=== PATIENT | female | born 1965 | race Caucasian/White ===

== ENCOUNTER → 2018-08-01 06:56 | Outpatient (CLI) | payer BC, SELFPAY ==
--- NOTE | 2018-08-01 07:04 | BI_ITS ---
MAMMOGRAPHY - BILATERAL SCREENING REASON FOR EXAM: Female, 53 years old. Routine annual screening examination. PERTINENT HISTORY: Grandmother with breast cancer. Remote right stereotactic breast biopsy. TECHNIQUE: Digital bilateral breast meg (3D mammographic acquisition) in the CC and MLO projections. 2-D mediolateral oblique (MLO) and craniocaudad (CC) views of both breasts were obtained. CAD: Full Field Digital Mammography with Computer Added Detection was performed. COMPARISON: Comparison is made with prior outside examination dated May 11, 2017. FINDINGS: Breast Composition: The breasts are heterogeneously dense, which may obscure small masses. Stable 1.7 cm x 1.6 cm well-defined nodule in the deep central lateral portion of the right breast. Punctate calcifications are seen within the period this may represent a fibroadenoma. Correlation with ultrasound is recommended. This also evidence of a 1.1 cm x 1 cm asymmetrical density in the deep slightly lateral portion of the left breast. Correlation with ultrasound is recommended. No other significant abnormalities are identified. BI/SCREENING MAMM (CAD), BILAT IMPRESSION: Nodular densities in both breasts as described. Correlation with ultrasound is recommended. ASSESSMENT CATEGORY: BIRADS Category 0: Incomplete. Need additional imaging evaluation. A letter regarding these results will be sent to the patient by the facility within 30 days. Approximately 10% of breast cancers are not detected by mammography. A normal mammogram should not delay biopsy of a clinically suspicious abnormality. [id number] Electronically Signed: Ed Curry MD at 8:54 EDT Tel [phone], Service support ,
== END ==
PROVIDERS: Family Provider Family Medicine; PCP Family Medicine; Visit Provider Nurse Practitioner Women's Health
DX: Z12.31 Encounter for screening mammogram for malignant neoplasm of breast (principal); N63.20 Unspecified lump in the left breast, unspecified quadrant; N63.10 Unspecified lump in the right breast, unspecified quadrant
CPT/HCPCS: 77063; 77067

== ENCOUNTER → 2018-08-04 09:44 | Outpatient (CLI) | payer BC, SELFPAY ==
--- NOTE | 2018-08-04 09:47 | US_ITS ---
STUDY: ULTRASOUND BREAST - RIGHT REASON FOR EXAM: Female, 53 years old. Abnormal screening mammogram. TECHNIQUE: Axial and longitudinal images of the RIGHT breast were performed with a high resolution ultrasound transducer. COMPARISON: Comparison is made with prior mammogram dated August 01, 2018. FINDINGS: RIGHT Breast: There is a 1 cm x 1.1 cm x 0.1 cm lobulated hypoechoic nodule at the 9:00 position breast at 2 cm from the nipple. A focal calcification is seen within it. This corresponds to the mammographic findings. A biopsy is recommended. IMPRESSION: 1 cm x 1.1 cm x 0.9 cm slightly lobulated hypoechoic nodule at the 9:00 position breast at 2 cm from the nipple. A punctate calcification is seen within the. A biopsy is recommended for further evaluation. ASSESSMENT CATEGORY: BIRADS Category 4: Suspicious - Biopsy Should Be Considered. A letter regarding these results will be sent to the patient by the facility within 30 days. Electronically Signed: Ed Curry MD at 15:49 EDT Tel [phone], Service support , STUDY: ULTRASOUND BREAST - LEFT REASON FOR EXAM: Female, 53 years old. Abnormal screening mammogram. TECHNIQUE: Axial and longitudinal images of the LEFT breast were performed with a high resolution ultrasound transducer. COMPARISON: Comparison is made with prior mammogram dated August 01, 2018. FINDINGS: LEFT Breast: The lateral half of the left breast was examined by ultrasound. There is dense fibroglandular tissue. No solid or cystic mass lesion is seen. US/Breast Complete Bilateral IMPRESSION: Unremarkable sonographic examination of the lateral half of the left breast. Routine annual mammographic follow-up is recommended. ASSESSMENT CATEGORY: BIRADS Category 1: Negative. A letter regarding these results will be sent to the patient by the facility within 30 days. Electronically Signed: Ed Curry MD at 15:49 EDT Tel [phone], Service support ,
== END ==
PROVIDERS: Family Provider Family Medicine; PCP Family Medicine; Visit Provider Nurse Practitioner Women's Health
DX: R92.8 Other abnormal and inconclusive findings on diagnostic imaging of breast (principal)
CPT/HCPCS: 76641

== ENCOUNTER → 2018-08-18 09:05 | Outpatient (CLI) | payer BC, SELFPAY ==
--- NOTE | 2018-08-18 | BRBX_PTH ---
PATIENT: JES MARCUM LOC: [facility] U#:[id number] AGE/SX: 60/F ROOM: RE08/18/[address]: Dr. Juan Mae MD : 1965 BED: DIS: SPEC #: [id number] RECD: 08/18/18 13:16 STATUS: LINDA NICOLASA #: [id number] DAMON: 08/18/18 00:[address]: Juan Mae DEPT: SURGICAL PATHOLOGY RECD BY: Boris Sun ENTERED: 08/18/18 13:16 SP TYPE: BREAST BX OTHR DR: Dr. Vladislav Batista MD Tissues: Right breast, NOS Procedures: Surgery Specimen Level IV HEADER OPERATION: Ultrasound-guided needle core biopsy right breast PRE-OP DIAGNOSIS: Abnormal mammogram right breast TISSUE SUBMITTED: Right breast biopsy MICROSCOPIC DIAGNOSIS Right breast, ultrasound-guided needle core biopsy: Hyalinized fibroadenoma. Negative for atypia or malignancy. SJ:ana 08/21/18 COMMENT Correlation with clinical, radiologic findings and appropriate follow up are necessary. MICROSCOPIC DESCRIPTION Slides are reviewed. GROSS DESCRIPTION Received in fixative is one container labeled with the patient's name and designated right breast biopsy. The specimen consists of multiple elongated fragments of pierson-yellow fibroadipose tissue that in aggregate measure 2 x 0.5 x 0.1 cm. The entire specimen is submitted in one cassette. / ERIC:ana 08/18/18 TC:1 CPT: 31263
== END ==
PROVIDERS: Family Provider Family Medicine; PCP Family Medicine; Referring Provider Surgery; Visit Provider Surgery
DX: R92.8 Other abnormal and inconclusive findings on diagnostic imaging of breast (principal)
CPT/HCPCS: 88305

== ENCOUNTER → 2019-08-02 07:16 | Outpatient (CLI) | payer BC, SELFPAY ==
--- NOTE | 2019-08-02 07:20 | BI_ITS ---
MAMMOGRAPHY - BILATERAL SCREENING REASON FOR EXAM: Female, 54 years old. Routine annual screening examination. PERTINENT HISTORY: Grandmother with breast cancer. Remote right stereotactic breast biopsy. TECHNIQUE: Digital bilateral breast lottie (3D mammographic acquisition) in the CC and MLO projections. 2-D mediolateral oblique (MLO) and craniocaudad (CC) views of both breasts were obtained. CAD: Full Field Digital Mammography with Computer Added Detection was performed. COMPARISON: Comparison is made with prior examination dated August 01, 2018. FINDINGS: Breast Composition: The breasts are heterogeneously dense, which may obscure small masses. There are no dominant masses or suspicious calcifications. Stable 1.4 cm x 1.4 cm nodule in the deep slightly upper lateral aspect of the right breast. A tissue clip marker is seen within it from prior biopsy. No new abnormality is seen. No other significant abnormalities are identified. There has been no significant change since the prior study. BI/SCREEN MAMM (CAD) W/LOTTIE BILAT IMPRESSION: Stable bilateral screening mammogram. Yearly follow-up mammogram recommended. (A) ASSESSMENT CATEGORY: BIRADS Category 2: Benign. A letter regarding these results will be sent to the patient by the facility within 30 days. Approximately 10% of breast cancers are not detected by mammography. A normal mammogram should not delay biopsy of a clinically suspicious abnormality. [id number] Electronically Signed: Ed Curry, at 10:33 EDT , Service support ,
== END ==
PROVIDERS: Family Provider Family Medicine; PCP Family Medicine; Referring Provider Nurse Practitioner Women's Health; Visit Provider Nurse Practitioner Women's Health
DX: Z12.31 Encounter for screening mammogram for malignant neoplasm of breast (principal); Z80.3 Family history of malignant neoplasm of breast
CPT/HCPCS: 77063; 77067

== ENCOUNTER → 2019-09-03 15:46 | Outpatient (CLI) | payer BC, SELFPAY ==
[2019-09-03 14:00] VITALS: BMI 25.7
[2019-09-07 16:14] LABS: HPV APTIMA, High Risk Negative (Negative)
== END ==
PROVIDERS: Family Provider Family Medicine; PCP Family Medicine; Referring Provider Nurse Practitioner Women's Health; Visit Provider Nurse Practitioner Women's Health
DX: Z12.4 Encounter for screening for malignant neoplasm of cervix (principal)
CPT/HCPCS: 87624; 88175; G0145

== ENCOUNTER → 2020-08-04 07:41 | Outpatient (CLI) | payer OTHER, SELFPAY ==
[2019-09-03 14:00] VITALS: BMI 25.7
--- NOTE | 2020-08-04 07:41 | BI_ITS ---
MAMMOGRAPHY - BILATERAL SCREENING REASON FOR EXAM: Female, 55 years old. Routine annual screening examination. PERTINENT HISTORY: Grandmother with breast cancer. Remote right Sterotactic and right ultrasound-guided breast biopsies. TECHNIQUE: Digital bilateral breast lottie (3D mammographic acquisition) in the CC and MLO projections. 2-D mediolateral oblique (MLO) and craniocaudad (CC) views of both breasts were obtained. CAD: Full Field Digital Mammography with Computer Added Detection was performed. COMPARISON: Comparison is made with prior examination dated 08/02/2019 and 08/01/2018. FINDINGS: Breast Composition: The breasts are heterogeneously dense, which may obscure small masses. There are no dominant masses or suspicious calcifications. Stable 1.2 cm x 1.4 cm nodular density in the deep slightly upper lateral aspect of the right breast. A tissue clip marker is seen within. No other significant abnormalities are identified. There has been no significant change since the prior study. BI/SCREEN MAMM (CAD) W/LOTTIE BILAT IMPRESSION: Stable bilateral screening mammogram. Yearly follow-up mammogram recommended. (A) ASSESSMENT CATEGORY: BIRADS Category 2: Benign. A letter regarding these results will be sent to the patient by the facility within 30 days. Approximately 10% of breast cancers are not detected by mammography. A normal mammogram should not delay biopsy of a clinically suspicious abnormality. [id number] Electronically Signed: Ed Curry, at 8:29 EDT , Service support ,
== END ==
PROVIDERS: PCP Family Medicine; Referring Provider Nurse Practitioner Women's Health; Visit Provider Nurse Practitioner Women's Health
DX: Z12.31 Encounter for screening mammogram for malignant neoplasm of breast (principal)
CPT/HCPCS: 77063; 77067

== ENCOUNTER → 2021-05-22 12:08 | Outpatient (CLI) | payer BC, SELFPAY ==
[2020-09-17 09:53] VITALS: BMI 25.1
[2021-05-22 12:50] LABS: D-Dimer Quantitative (DVT/PE) 0.37 FEU/ug/m (0.27-0.49)
== END ==
PROVIDERS: PCP Family Medicine; Referring Provider Family Medicine; Visit Provider Family Medicine
DX: R07.9 Chest pain, unspecified (principal)
CPT/HCPCS: 85379

== ENCOUNTER 2021-09-19 16:50 | Inpatient (IN) | payer BC, SELFPAY ==
[2021-09-19 16:51] VITALS: BP 128/77; PULSE 121; RESP 20; TEMP 36.1; O2SAT 95; BMI 24.9
--- NOTE | 2021-09-19 16:59 | RAD_ITS ---
STUDY: X-RAY CHEST REASON FOR EXAM: Female, 56 years old. shortness of breath, patient seen at urgent care last week given prednisone no xray felt better at the time now feeling worse TECHNIQUE: AP COMPARISON: None. FINDINGS: EKG leads project over the chest. Ill-defined infiltrate in left lower lobe. Trace left pleural thickening. Normal size heart. Normal mediastinum and nya. Normal visualized pulmonary arteries. Normal visualized aortic arch and descending thoracic aorta. Normal visualized thoracic spine. Normal visualized ribs, clavicles, and shoulders. There is no demonstrated abnormality of the visualized soft tissue structures of the upper abdomen. RAD/Chest 1 View (Portable) IMPRESSION: Left lower lobe infiltrate. Electronically Signed: Aly Mix MD (Brooks) at 17:38 EDT , Service support ,
--- NOTE | 2021-09-19 16:59 | EKG12_ITS ---
Test Reason : SOB/CHEST PRESSURE Blood Pressure : / mmHG Vent. Rate : 116 BPM Atrial Rate : 116 BPM P-R Int : 166 ms QRS Dur : 072 ms QT Int : 312 ms P-R-T Axes : 038 060 066 degrees QTc Int : 433 ms Sinus tachycardia Nonspecific ST and T wave abnormality Abnormal ECG Confirmed by BRENNA MUÑIZ, ESTER ([id number]), pictures editor KARTHIK BARNETT ([id number]) on 09/22/2021 9:30:20 AM Referred By: ROEL Confirmed By:ESTER CEJA MD
--- NOTE | 2021-09-19 17:00 | EDS_ITS ---
HPI History of Present Illness Chief Complaint: Shortness of Breath Informant: patient Onset/Context/Timing Onset: Weeks Context: Gradual Onset Timing: Waxes and wanes Current Severity: Mild Maximum Severity: Moderate Narrative Narrative: Patient presents secondary to continued shortness of breath. She reports shortness of breath for the past 2 weeks. She was seen at urgent care and was treated with a course of prednisone. That helped briefly but symptoms did recur. She does not feel like she is wheezing and has not required use of her albuterol rescue inhaler. She also reports having some mild chest pressure for the last 3 months. She states when it initially started she was worked up and cardiac evaluation was negative at that time. Patient has had 2 negative Covid tests in the last week. [facility] Medical History Abnormal Pap smear of cervix Asthma Home Medications albuterol sulfate 90 mcg/actuation aerosol inhaler 1 puff INHALATION Q6H 12/01/17 [History Last Taken Unknown] fluticasone 100 mcg-salmeterol 50 mcg/dose blistr powdr for inhalation 1 puff INHALATION BID 12/01/17 [History Last Taken Unknown] nicotine (polacrilex) 4 mg buccal lozenge 4 mg MUCOUS MEMBRANE ONCE 08/16/18 [History Last Taken Unknown] Allergy/AdvReac Type Severity Reaction Status Date / Time No Known Allergies Allergy Verified 09/19/21 16:55 Family History Grandmother Breast cancer Mother Thyroid disorder Hypertension Father Hypertension Surgical History colonoscopy History of right breast biopsy Social History Smoking Status: Never smoker alcohol intake: current details: occasionally substance use type: does not use caffeine: Yes what type of physical activity do you participate in: walking frequency: 3-4 times per week seatbelt use: always do you feel safe at home: Yes additional social history: patient works at the [employer] - Alberto works at [employer] ED Constitutional Constitutional ED: Reports fever(s); Denies chills Eyes Eyes: Denies change in vision ENT ENT ED: Denies sore throat Cardiovascular Cardiovascular: Reports chest pain Respiratory/Chest Respiratory/Chest: Reports cough and dyspnea; Denies sputum Gastrointestinal Gastrointestinal: Denies abdominal pain, diarrhea, nausea or vomiting Musculoskeletal Musculoskeletal: Denies back pain Integumentary Denies rash Neurologic Neurologic: Denies headache(s) or weakness Allergic/Immunologic Allergic/Immunologic ED: Denies urticaria EXAM Physical Exam Const Vital Signs: 09/19/21 16:51 09/19/21 17:19 Temperature 97.0 F L Temperature Source Temporal Pulse Rate 121 H Respiratory Rate 20 H Respiratory Effort Normal Non-Labored Respiratory Pattern Normal Blood Pressure 128/77 H Blood Pressure Mean 94 Pulse Ox 95 Oxygen Delivery Method Room Air Positive well nourished and well developed General Appearance ED: well developed Eyes PERRL and EOMs intact bilaterally Neck no lymphadenopathy and supple Chest Wall inspection of chest normal and palpation of chest normal Resp normal respiratory effort and clear to auscultation bilaterally Cardio regular rhythm Rate: tachycardic GI normal to inspection, nondistended, normoactive bowel sounds and non-tender Palpation: soft Extremity normal to inspection Neuro oriented x3 Sensorium / Orientation: alert Psych mental status grossly normal Skin no rashes or lesions noted MDM MDM MDM Narrative Medical decision making narrative: EKG, chest x-ray, lab work obtained. Lab Data Attestation: I reviewed the patient's lab results. Labs: Laboratory Results - last 24 hr 09/19/21 09/19/21 09/19/21 17:10 17:10 17:10 WBC 16.5 H RBC 3.89 L Hgb 10.5 L Hct 32.4 L MCV 83.3 MCH 27.0 MCHC 32.4 RDW Std Deviation 41.3 RDW Coeff of Sona 13.6 Plt Count 351 MPV 10.5 Immature Gran % (Auto) 0.500 Neut % (Auto) 71.4 H Lymph % (Auto) 15.9 L Dundy % (Auto) 11.6 H Eos % (Auto) 0.3 Baso % (Auto) 0.3 Absolute Neuts (auto) 11.8 H Absolute Lymphs (auto) 2.61 Nucleated RBC % 0 Differential Comment SCANNED Diff Path Review May foll D-Dimer Quant (PE/DVT) 5.03 H* Sodium 136 Potassium 3.6 Chloride 101 Carbon Dioxide 28.0 Anion Gap 7 BUN 8 Creatinine 0.68 Estim Creat Clear Calc 80.72 Est GFR (MDRD) Af Amer 116 Est GFR (MDRD) Non-Af 96 BUN/Creatinine Ratio 11.8 Glucose 111 H Calcium 8.7 Troponin I High Sens 4 Radiography Chest X-Ray - ED: 1 View, Read by ED Physician and Left Infiltrate Diagnostic Testing: Clinical Impression(s) from Imaging Studies Chest X-Ray 09/19/21 16:59 IMPRESSION: Left lower lobe infiltrate. Electronically Signed: Aly Mix MD (Brooks) at 17:38 EDT , Service support , Chest CTA 09/19/21 18:10 IMPRESSION: 1. No central or segmental pulmonary embolism. 2. Moderate volume pericardial effusion. 3. Small left and trace right pleural effusions. 4. Left lower lobe more than right lower lobe parenchymal consolidation, likely atelectasis although pneumonia cannot be excluded. Electronically Signed: Aly Mix MD (Brooks) at 18:46 EDT , Service support , EKG Initial EKG: Attestation: I personally reviewed and interpreted this EKG as follows: Interpretation: Sinus Tachycardia (Sinus tach at 116. No significant ST change.) Treatment and Re-Evaluation Comments:: Patient's lab work is reviewed. White count is elevated at 16. Chest x-ray consistent with left lower lobe infiltrate. D-dimer elevated at 5. CTA of the chest obtained which reveals atelectasis versus infiltrate in the left base. No evidence of PE. Moderate pericardial effusion noted. On repeat evaluation patient's blood pressure is stable. Oxygen saturation is normal on room air. She remains tachycardic between 110 and 120. I spoke with patient's primary care physician to see if we could arrange outpatient echocardiogram on Tuesday as patient is currently in the ER on Tuesday evening. He did not feel comfortable with this plan feeling the patient should be observed in the hospital until echocardiogram can be performed. I spoke with cardiology as well. With the patient having stable vital signs other than tachycardia he is comfortable with patient being admitted, treated for pneumonia, and obtaining echocardiogram on Tuesday. This is been discussed with patient and at bedside. They are in agreement with the plan. I will speak with the hospitalist. Discharge Plan Triage Chief Complaint: Shortness of Breath ED Provider: Mylene Mendes Dx/Rx/DC Orders Clinical Impression: Pneumonia, Pericardial effusion Prescriptions: No Action fluticasone propion-salmeterol [Advair Diskus] 100-50 mcg/dose blister with device 1 puff INHALATION BID RF: 0 albuterol sulfate [ProAir HFA] 90 mcg/actuation HFA aerosol inhaler 1 puff INHALATION Q6H RF: 0 nicotine (polacrilex) 4 mg lozenge 4 mg Mucous Membrane ONCE RF: 0 Primary Care Provider: Vladislav Batista Referrals: Vladislav Batista MD [Primary Care Provider] - Disposition Disposition: Acute Care [facility]
--- NOTE | 2021-09-19 17:03 | NURSING ---
NO OLD EKGS
[2021-09-19 17:45] LABS: Absolute Lymphocyte Count 2.61 X10^3/uL (0.83-4.51); Absolute Neutrophil Count 11.8 X10^3/uL (2.0-7.7); Basophil# 0.05 X10^3/uL; Basophil% 0.3 % (0-1); Eosinophil# 0.05 X10^3/uL; Eosinophils% 0.3 % (0-5); Hematocrit 32.4 % (37-47); Hemoglobin 10.5 g/dL (12.0-15.0); Lymphocyte # 2.61 X10^3/ul (0.83-4.51); Lymphocyte % 15.9 % (19-41); Mean Corp Hgb Conc 32.4 g/dL (32-36); Mean Corpuscular Volume 83.3 fL (81-99); Mean Platelet Vol. 10.5 fl (6.2-12.0); Monocyte% 11.6 % (0-10); NRBC Flagged by Analyzer 0 % (0-5); Neutrophil # 11.76 X10^3/uL (2.7-7.7); Neutrophil % 71.4 % (47-70); POSITIVE DIFFERENTIAL YES; Platelet Count 351 K/mm3 (150-450); RBC Distribution Width CV 13.6 % (11.6-14.6); RBC Distribution Width SD 41.3 fl (35.1-43.9); Red Blood Count 3.89 M/mm3 (4.2-5.4); White Blood Count 16.5 K/mm3 (4.4-11.0)
[2021-09-19 17:53] LABS: Differential Indicated SCAN CRITERIA MET
[2021-09-19 18:05] LABS: Anion Gap 7 (5-15); BUN 8 mg/dL (7-18); BUN/Creat Ratio 11.8 RATIO (10-20); Calcium,Total 8.7 mg/dL (8.5-10.1); Chloride 101 mmol/L (98-107); Creatinine, Serum 0.68 mg/dL (0.55-1.02); D-Dimer Quantitative (DVT/PE) 5.03 FEU/ug/m (0.27-0.49); EST Glomerular Filtration Rate 96 mL/min (>60); Est Glom Filt Rate - Afr Amer 116 mL/min (>60); Estimated Creatinine Clearance 80.72 ml/min; Glucose 111 mg/dL (74-106); Potassium 3.6 mmol/L (3.5-5.1); Sodium Level 136 mmol/L (136-145); Troponin-I HS 4 pg/mL (3.0-54.0)
[2021-09-19 18:09] LABS: Differential Comment SCANNED
--- NOTE | 2021-09-19 18:10 | CT_ITS ---
STUDY: CTA CHEST REASON FOR EXAM: Female, 56 years old. sob RADIATION DOSAGE (If Supplied By Facility): CTDIvol = ( 6.68 ) mGy, DLP = ( 183.66 ) mGycm TECHNIQUE: The examination was performed with the intravenous administration of IV 75mL Isovue-370. Post-processing of the angiographic images was performed, with multiplanar reformation and 3D reconstruction. Individualized dose optimization techniques were used for this CT. COMPARISON: None. FINDINGS: Normal enhancement of the main pulmonary artery and right and left pulmonary arteries. Normal enhancement of the bilateral peripheral pulmonary arteries. There is no demonstrated pulmonary embolism. Normal thoracic aorta and visualized great vessels. There is no demonstrated aortic dissection. The heart size is normal. Moderate volume pericardial effusion. Normal mediastinum. Normal hilar regions. Normal visualized trachea and bronchi. The lungs are under expanded. Parenchymal consolidation in the left more than right lung base. Small left and trace right pleural effusions. No pneumothorax. Normal chest wall structures. There are degenerative changes of thoracic spine. Normal visualized upper abdomen. CT/CTA Chest W/WO Contrast IMPRESSION: 1. No central or segmental pulmonary embolism. 2. Moderate volume pericardial effusion. 3. Small left and trace right pleural effusions. 4. Left lower lobe more than right lower lobe parenchymal consolidation, likely atelectasis although pneumonia cannot be excluded. Electronically Signed: Aly Mix MD (Brooks) at 18:46 EDT , Service support ,
[2021-09-19] MEDS: levoFLOXacin 750 MG Tablet PO (20:07)
--- NOTE | 2021-09-19 20:48 | PCM.HP.STD ---
[facility] - General General Date of Admission: 09/19/21 Date of Service: 09/19/21 Chief Complaint: SOB HPI Narrative JES MARCUM, is a 56 F with a significant history of asthma who presents to the emergency department with recurrent shortness of breath. About 6-day before presentation patient was started on prednisone for shortness of breath. She finished taking the prednisone 2 days ago and a day after presentation her symptoms of shortness of breath restarted. Her shortness of breath is mild at rest and it increases markedly with exertion. Also she reports dry cough. At the emergent department because patient was found to have pleural effusion on CT, ED doctor discussed the case with cardiology who recommended that patient stay at the hospital. [facility] Medical History Abnormal Pap smear of cervix Asthma Home Medications albuterol sulfate 90 mcg/actuation aerosol inhaler 1 puff INHALATION Q6H 12/01/17 [History Last Taken Unknown] fluticasone propion-salmeterol [Wixela Inhub] 1 ea INHALATION BID 09/19/21 [History Last Taken Unknown] montelukast 10 mg PO PRN PRN 09/19/21 [History Last Taken Unknown] Allergy/AdvReac Type Severity Reaction Status Date / Time No Known Allergies Allergy Verified 09/19/21 21:46 Family History Grandmother Breast cancer Mother Thyroid disorder Hypertension Father Hypertension Surgical History colonoscopy History of right breast biopsy Social History Smoking Status: Current every day smoker tobacco type: cigarettes alcohol intake: current details: occasionally substance use type: does not use caffeine: Yes what type of physical activity do you participate in: walking frequency: 3-4 times per week seatbelt use: always do you feel safe at home: Yes 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 Denies , fatigue, anorexia and change in weight Eyes: Denies blurry vision, change in eye color, change in vision, discharge from eye(s), double vision, erythema, eye pain, loss of vision or other HEENT: Denies abnormal hearing, dysphagia, ear pain, epistaxis, headache(s), hearing loss, nasal congestion, nasal discharge, post nasal drip, sinus pressure, sore throat or other Cardiovascular: Reports chest pressure. Denies palpitations. Respiratory/Chest: Reports shortness of breath and dry cough. Gastrointestinal: Denies abdominal pain, coffee ground emesis, constipation, diarrhea, dyspepsia, hematemesis, hematochezia, loose stools, melena, nausea, vomiting or other Genitourinary: Denies burning urination, difficulty urinating, dysuria, hematuria, nocturia, urinary frequency, urinary hesitancy, urinary incontinence, urinary urgency or other Musculoskeletal: Denies arthralgias, back pain, joint pain, joint stiffness, joint swelling, myalgias, neck pain or other Neurologic: Denies abnormal gait, abnormal speech, confusion, disequilibrium, dizziness, focal weakness, headache(s), numbness, paresthesias, seizure-like activity, seizures, syncope, tingling, tremor(s) or other Psychiatric: Denies anxiety, depression, homicidal ideation, suicidal ideation or other Endocrinology: Denies change in body appearance, cold intolerance, excessive sweating, heat intolerance, polydipsia, polyuria or other Hematologic/Lymphatic: Denies anemia, easy bleeding, easy bruising, lymphadenopathy or other Integumentary: Denies rashes Allergic/Immunologic: Denies rhinitis, hives, eczema, asthma or other Vital Signs Vital Signs Vital Signs: 09/19/21 16:51 09/19/21 17:19 Temperature 97.0 F L Temperature Source Temporal Pulse Rate 121 H Respiratory Rate 20 H Respiratory Effort Normal Non-Labored Respiratory Pattern Normal Blood Pressure 128/77 H Blood Pressure Mean 94 Pulse Ox 95 Oxygen Delivery Method Room Air Weight Weight: 65.771 kg Body Mass Index (BMI) 24.9 Physical Exam Narrative Physical exam: General: Well-nourished, well-developed. Head: Normocephalic, atraumatic, no tenderness Eyes: PERRLA, EOMI ENT, no trauma, moist mucous membranes, no rhinorrhea Neck: Nontender, full range of motion, no spinal tenderness, deformities, step-off CVS: Regular rate and rhythm. S1-S2 present. No murmur, gallop or rub. Respiratory : clear to auscultation bilaterally, chest wall nontender, no wheezing Abdomen: Soft, nontender, nondistended, normal bowel sounds, no masses : Deferred Back: Nontender, no CVA tenderness, no midline spinal tenderness, deformities, step-offs Extremities: Nontender full range of motion, no trauma Skin: Normal color, no trauma, abrasions Neuro: Alert, oriented, cranial nerves II through XII grossly intact. Psychiatry: Not depressed. Anxious. Results Lab / Micro Data Result Diagrams: 09/19/21 17:10 09/19/21 17:10 Labs: Laboratory Results - last 24 hr 09/19/21 17:10: WBC 16.5 H, RBC 3.89 L, Hgb 10.5 L, Hct 32.4 L, MCV 83.3, MCH 27.0, MCHC 32.4, RDW Std Deviation 41.3, RDW Coeff of Sona 13.6, Plt Count 351, MPV 10.5, Immature Gran % (Auto) 0.500, Neut % (Auto) 71.4 H, Lymph % (Auto) 15.9 L, Bullock % (Auto) 11.6 H, Eos % (Auto) 0.3, Baso % (Auto) 0.3, Absolute Neuts (auto) 11.8 H, Absolute Lymphs (auto) 2.61, Nucleated RBC % 0, Differential Comment SCANNED, Diff Path Review March foll 09/19/21 17:10: D-Dimer Quant (PE/DVT) 5.03 H* 09/19/21 17:10: Sodium 136, Potassium 3.6, Chloride 101, Carbon Dioxide 28.0, Anion Gap 7, BUN 8, Creatinine 0.68, Estim Creat Clear Calc 80.72, Est GFR (MDRD) Af Amer 116, Est GFR (MDRD) Non-Af 96, BUN/Creatinine Ratio 11.8, Glucose 111 H, Calcium 8.7, Troponin I High Sens 4 Radiology Impression Chest X-Ray 09/19/21 16:59 IMPRESSION: Left lower lobe infiltrate. Electronically Signed: Aly Mix MD (Brooks) at 17:38 EDT , Service support , Chest CTA 09/19/21 18:10 IMPRESSION: 1. No central or segmental pulmonary embolism. 2. Moderate volume pericardial effusion. 3. Small left and trace right pleural effusions. 4. Left lower lobe more than right lower lobe parenchymal consolidation, likely atelectasis although pneumonia cannot be excluded. Electronically Signed: Aly Mix MD (Brooks) at 18:46 EDT , Service support , Assessment & Plan Assessment/Plan (1) Pneumonia: QUALIFIERS: Laterality: bilateral Lung location: lower lobe of lung Pneumonia type: due to unspecified organism Qualified Code(s): J18.9 - Pneumonia, unspecified organism (2) Pericardial effusion: PLAN: Pneumonia Gram-positive, or gram-negative Chest CTA and chest x-ray was independently interpreted and I agree with radiologist impression above. Reported patient had 2 negative Covid test in the last week. Patient leukocytosis 16.5 which could secondary to pneumonia of her recent prednisone use. Levaquin 750 mg IV daily ordered. Incentive spirometer and chest physiotherapy ordered. Strep pneumonia antigen and Legionella urine antigen ordered On ICS?LABA at home. Albuterol inhalation [id number] and Budesonide ordered inpatient. Pericardial effusion ESR and CRP ordered. Echocardiogram ordered per cardiology recommendation. Cardiology consult Asthma Stable without any wheezes or diminished breath sounds at this time. Montelukast continued. Breathing treatment as above. DVT prophylaxis: Subcutaneous Lovenox ordered. Charges/Coding Visit Charges Inpatient E&M: 34186 Init Hosp L3
[2021-09-19 21:01] VITALS: BP 104/66; PULSE 113; PULSE 114; RESP 24; RESP 25; TEMP 36.4; O2SAT 95
[2021-09-19 21:39] VITALS: BMI 24.9
[2021-09-19 21:44] VITALS: BP 121/65; PULSE 115; RESP 20; TEMP 37.6; O2SAT 97
[2021-09-19] MEDS: Acetaminophen 325 MG Tablet 650 MG PO (22:07)
[2021-09-19 22:19] LABS: Erythrocyte Sedimentation Rate 76 mm/hr (0-30)
[2021-09-19 22:20] VITALS: PULSE 106
--- NOTE | 2021-09-19 22:23 | PCS.PANDOC ---
PANDEMIC DOCUMENTATION INITIATED: Date: 07/06/2021 Time: 190
[2021-09-19 23:59] VITALS: O2SAT 95
[2021-09-20] VITALS (12 sets, daily range): BP systolic 94–111; BP diastolic 63–68; PULSE 90–101; RESP 16–20; TEMP 36.5–37.2; O2SAT 91–100
[2021-09-20] MEDS: Albuterol 2.5 MG/3 ML VIAL.NEB. INHALATION (05:41)
[2021-09-20] MEDS: Budesonide Respules 0.5 MG/2 ML AMPUL.NEB. INHALATION (05:41)
[2021-09-20 05:58] LABS: Absolute Lymphocyte Count 1.64 X10^3/uL (0.83-4.51); Absolute Neutrophil Count 6.4 X10^3/uL (2.0-7.7); Basophil# 0.05 X10^3/uL; Basophil% 0.5 % (0-1); Eosinophil# 0.11 X10^3/uL; Eosinophils% 1.1 % (0-5); Hematocrit 32.1 % (37-47); Hemoglobin 10.2 g/dL (12.0-15.0); Lymphocyte # 1.64 X10^3/ul (0.83-4.51); Mean Corp Hgb Conc 31.8 g/dL (32-36); Mean Corpuscular Hgb 26.8 pg (27.0-32.0); Mean Corpuscular Volume 84.3 fL (81-99); Mean Platelet Vol. 10.5 fl (6.2-12.0); Monocyte# 1.35 X10^3/uL; NRBC Flagged by Analyzer 0 % (0-5); Neutrophil # 6.43 X10^3/uL (2.7-7.7); Neutrophil % 66.8 % (47-70); Platelet Count 344 K/mm3 (150-450); RBC Distribution Width CV 13.8 % (11.6-14.6); RBC Distribution Width SD 42.9 fl (35.1-43.9); Red Blood Count 3.81 M/mm3 (4.2-5.4); White Blood Count 9.6 K/mm3 (4.4-11.0)
[2021-09-20 06:20] LABS: Anion Gap 6 (5-15); BUN 10 mg/dL (7-18); Calcium,Total 8.5 mg/dL (8.5-10.1); Chloride 102 mmol/L (98-107); Creatinine, Serum 0.67 mg/dL (0.55-1.02); EST Glomerular Filtration Rate 98 mL/min (>60); Est Glom Filt Rate - Afr Amer 118 mL/min (>60); Estimated Creatinine Clearance 81.93 ml/min; Glucose 103 mg/dL (74-106); Sodium Level 137 mmol/L (136-145)
[2021-09-20] MEDS: Montelukast 10 MG Tablet PO (09:04)
--- NOTE | 2021-09-20 11:34 | ECHOD_ITS ---
Reason For Study: arrhythmia Procedure This was a 2D Doppler, Color Flow transthoracic echocardiogram. Contrast injection was performed. Exam performed portable in patient room. Left Ventricle Normal LV size. Left ventricular systolic function is normal. The estimated ejection fraction is 65 %. No evidence for diastolic dysfunction. No regional wall motion abnormalities noted. Right Ventricle Normal RV size. Normal systolic function. Atria Normal left atrium. Normal right atrium. No doppler evidence for ASD. Mitral Valve There is no mitral annular calcification. Normal mitral valve. Trivial mitral valve insufficiency. Tricuspid Valve Normal tricuspid valve. Mild tricuspid valve insufficiency. Right ventricular systolic pressure estimated to be 22 mmHg. Aortic Valve Trisinus/trileaflet aortic valve. Normal aortic valve. Pulmonic Valve The pulmonic valve is not well visualized. Trivial pulmonic valve insufficiency. Great Vessels Normal sized aortic root. Pericardium/Pleural Trivial to small pericardial effusion. There are no echocardiographic indications of cardiac tamponade. MMode/2D Measurements & Calculations LVIDd: 4.5 cm IVSd: 1.1 cm Ao root diam: 3.3 cm LVIDs: 3.1 cm LVPWd: 1.1 cm RVDd: 2.8 cm FS: 31.1 % LAV(MOD-bp): 59.5 ml LA A4 area: 18.5 cm2 LA dimension(2D): 3.9 cm LAV(MOD-bp) Indexed: 34.9 ml/m2 LAV(MOD-sp2): 58.6 ml LAV(MOD-sp4): 58.6 ml RA A4 area: 14.8 cm2 Time Measurements MV dec time: 0.18 sec Doppler Measurements & Calculations MV E max shreyas: 76.8 cm/sec Lat Peak E' Shreyas: 10.3 cm/sec Med Peak E' Shreyas: 10.6 cm/sec MV A max shreyas: 68.1 cm/sec E/E' lat: 7.4 E/E' med: 7.3 MV E/A: 1.1 Ao V2 max: 111.0 cm/sec LV V1 max: 91.3 cm/sec PA V2 max: 87.6 cm/sec Ao max P.9 mmHg LV V1 max P.3 mmHg TR max shreyas: 209.7 cm/sec TR max P.0 mmHg ECHO/Echo Complete Interpretation Summary Left ventricular systolic function is normal. The estimated ejection fraction is 65 %. Trivial mitral valve insufficiency. Mild tricuspid valve insufficiency. Trivial pulmonic valve insufficiency. Trivial to small pericardial effusion. There are no echocardiographic indications of cardiac tamponade. Right ventricular systolic pressure estimated to be 22 mmHg. No evidence for diastolic dysfunction. Ordering Physician: Bruce Millard Referring Physician: Vladislav Batista Performed By: Sonya Obrien RDCS, RVT
--- NOTE | 2021-09-20 12:07 | PCM.PN.HOSP ---
Documented by User: Seb MARTE 09/20/21 12:18 Subjective Subjective Patient was a 56-year-old female comfortably resting in bed, alert and orient x3. Patient reports that her shortness of breath is more or less the same from admission, although she does not appear to be in acute distress. Denies development of any new symptoms overnight. Objective Data Objective Data Vital Signs: Vital Signs Temp Pulse Resp BP Pulse Ox 98 F 90 20 H 107/63 97 09/20/21 09:50 09/20/21 10:00 09/20/21 10:00 09/20/21 09:50 09/20/21 10:00 Oxygen Delivery Method Room Air Weight: 145 lb 4.554 oz Body Mass Index (BMI) 24.9 Lab / Micro Data Result Diagrams: 09/20/21 05:18 09/20/21 05:18 Labs: Laboratory Results - last 24 hr 09/19/21 17:10: WBC 16.5 H, RBC 3.89 L, Hgb 10.5 L, Hct 32.4 L, MCV 83.3, MCH 27.0, MCHC 32.4, RDW Std Deviation 41.3, RDW Coeff of Sona 13.6, Plt Count 351, MPV 10.5, Immature Gran % (Auto) 0.500, Neut % (Auto) 71.4 H, Lymph % (Auto) 15.9 L, [place] % (Auto) 11.6 H, Eos % (Auto) 0.3, Baso % (Auto) 0.3, Absolute Neuts (auto) 11.8 H, Absolute Lymphs (auto) 2.61, Nucleated RBC % 0, Differential Comment SCANNED, Diff Path Review March09/19/21 17:10: D-Dimer Quant (PE/DVT) 5.03 H* 09/19/21 17:10: Sodium 136, Potassium 3.6, Chloride 101, Carbon Dioxide 28.0, Anion Gap 7, BUN 8, Creatinine 0.68, Estim Creat Clear Calc 80.72, Est GFR (MDRD) Af Amer 116, Est GFR (MDRD) Non-Af 96, BUN/Creatinine Ratio 11.8, Glucose 111 H, Calcium 8.7, Troponin I High Sens 4 09/19/21 17:10: C-React Prot Ext Range 104.00 H 09/19/21 17:10: ESR 76 H 09/20/21 05:18: WBC 9.6, RBC 3.81 L, Hgb 10.2 L, Hct 32.1 L, MCV 84.3, MCH 26.8 L, MCHC 31.8 L, RDW Std Deviation 42.9, RDW Coeff of Sona 13.8, Plt Count 344, MPV 10.5, Immature Gran % (Auto) 0.600, Neut % (Auto) 66.8, Lymph % (Auto) 17.0 L, [place]oughton % (Auto) 14.0 H, Eos % (Auto) 1.1, Baso % (Auto) 0.5, Absolute Neuts (auto) 6.4, Absolute Lymphs (auto) 1.64, Nucleated RBC % 0 09/20/21 05:18: Sodium 137, Potassium 4.0, Chloride 102, Carbon Dioxide 29.0, Anion Gap 6, BUN 10, Creatinine 0.67, Estim Creat Clear Calc 81.93, Est GFR (MDRD) Af Amer 118, Est GFR (MDRD) Non-Af 98, BUN/Creatinine Ratio 15.0, Glucose 103, Calcium 8.5 Micro: Microbiology 09/19/21 21:58 Urine, Clean Catch Legionella Antigen - Final 09/19/21 21:58 Urine, Clean Catch Streptococcus pneumoniae Antigen (M - Final Radiography Diagnostic Testing: Radiology Impression Chest X-Ray 09/19/21 16:59 IMPRESSION: Left lower lobe infiltrate. Electronically Signed: Aly Mix MD (Brooks) at 17:38 EDT , Service support , Chest CTA 09/19/21 18:10 IMPRESSION: 1. No central or segmental pulmonary embolism. 2. Moderate volume pericardial effusion. 3. Small left and trace right pleural effusions. 4. Left lower lobe more than right lower lobe parenchymal consolidation, likely atelectasis although pneumonia cannot be excluded. Electronically Signed: Aly Mix MD (Brooks) at 18:46 EDT , Service support , Physical Exam Const alert, oriented x3 and no apparent distress HEENT head/scalp atraumatic, moist oral mucous membranes and oropharynx normal Head and Scalp: normocephalic Eyes PERRL, EOMs intact bilaterally and conjunctivae normal Neck no lymphadenopathy, supple and no JVD Resp normal respiratory effort, no retractions and no use of accessory muscles Auscultation: diminished lung sounds bilateral lower Cardio regular rate, regular rhythm, no murmurs and no JVD GI normal to inspection, nondistended, normoactive bowel sounds, soft to palpation and non-tender Extremity normal to inspection, full ROM and no clubbing, cyanosis or edema Peripheral Pulses: Yes pulses 2+ throughout Skin no rashes or lesions noted, no wounds, skin turgor normal and no jaundice Neuro CN's II-XII intact bilaterally Psych affect normal Assessment & Plan Assessment/Plan (1) Pneumonia: QUALIFIERS: Laterality: bilateral Lung location: lower lobe of lung Pneumonia type: due to unspecified organism Qualified Code(s): J18.9 - Pneumonia, unspecified organism (2) Pericardial effusion: PLAN: Day 1 Discharge planning: Current plan is for patient to discharge home. 1) community-acquired pneumonia Patient reports that her shortness of breath is the same from admission, although patient does not appear to be in acute distress. Vital signs are stable and patient is currently satting 97% on room air. White count has resolved, WBC is currently 9.6. CTA and chest x-ray both identified left lower lobe infiltrate. Legionella and strep pneumo urinary antigens negative. Patient had 2 - Covid test prior to admission in the last week. Plan; continue levofloxacin, continue breathing treatments. 2) pericardial effusion Seen on chest CTA. Recommendation is for echocardiogram on 09/21, per cardiology. Cardiology following. 3) asthma Patient has diminished lung sounds bilaterally at the lower lung bases, although patient appears stable, montelukast and breathing treatments continued. DVT prophylaxis - Lovenox Patient seen by Seb Medina PA-C, under the supervision of Dr. Velasco. Documented by User: Dr. Joanne Velasco MD 09/20/21 13:48 Objective Data Lab / Micro Data Result Diagrams: 09/20/21 05:18 09/20/21 05:18 Charges/Coding Addendum Addendum: This patient was seen in conjunction with ROSANNA Flaherty. I have independently interviewed and examined the patient and reviewed pertinent historical, laboratory, and other data. Please refer to ROSANNA Flaherty's note for his patient's presentation, findings, and recommendations. I have reviewed and his note and concur with his documentation Patient was seen and examined. Her was at the bedside. She denied any chest discomfort. She has had on and no fevers or joint aches. She has occasional cough but is mostly dry. Chest x-ray had showed a left lower lobe infiltrate. CTA did show bilateral pleural effusion, more in the left. Physical Exam: Gen: Comfortable, not pale, not jaundiced CVS:HS I +II, regular, no murmurs RESP: CTA GI: BS present and normal, soft, nontender, no palpable organs EXT:No edema ASSESSMENT: 1. Acute moderate pleural effusion 2. Probable left lower lobe pneumonia 3. Asthma, not in acute exacerbation Plan: Continue IV antibiotics for now Appreciate cardiology consult Follow-up with 2D echo in a.m. Visit Charges Inpatient E&M: 23413 Subs Hosp L2
--- NOTE | 2021-09-20 12:25 | CON.PCM.CA_ITS ---
Assessment & Plan Assessment/Plan (1) Pneumonia: QUALIFIERS: Pneumonia type: due to unspecified organism Laterality: bilateral Lung location: lower lobe of lung Qualified Code(s): J18.9 - Pneumonia, unspecified organism (2) Asthma: (3) Pericardial effusion: PLAN: 56-year-old female with history of bronchial asthma, smoker who presented with symptoms shortness of breath Has leukocytosis with abnormal CT chest showing evidence of bilateral left and right lower lobe consolidation more prominent in the left lower lobe In addition to moderate pericardial effusion Patient has no prior cardiac history Cardiovascular examination essentially normal cardiac telemetry showed normal sinus rhythm she been improving on the current IV antibiotic treatment for pneumonia with Levaquin Cardiac care plan and recommendations; 1. We will evaluate the moderate pericardial effusion by echocardiogram. 2. We will follow-up clinically by the cardiac team. HPI Consult Data Date of Consult: 09/20/21 HPI Narrative Reason for Consultation: Pericardial effusion evaluation HPI Narrative: JES MARCUM, is a 56 F who presents [facility] Medical History Abnormal Pap smear of cervix Asthma Home Medications albuterol sulfate 90 mcg/actuation aerosol inhaler 1 puff INHALATION Q6H 12/01/17 [History Last Taken Unknown] fluticasone propion-salmeterol [Wixela Inhub] 1 ea INHALATION BID 09/19/21 [History Last Taken Unknown] montelukast 10 mg PO PRN PRN 09/19/21 [History Last Taken Unknown] Allergy/AdvReac Type Severity Reaction Status Date / Time No Known Allergies Allergy Verified 09/19/21 21:46 Family History Grandmother Breast cancer Mother Thyroid disorder Hypertension Father Hypertension Surgical History colonoscopy History of right breast biopsy Social History Smoking Status: Current every day smoker tobacco type: cigarettes alcohol intake: current details: occasionally substance use type: does not use caffeine: Yes what type of physical activity do you participate in: walking frequency: 3-4 times per week seatbelt use: always do you feel safe at home: Yes 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 Has symptoms of shortness of breath but improving No symptoms of chest pain reported Patient alert oriented x3. Cardiovascular lamination; S1-S2 normal, no murmur no systolic or diastolic murmur Chest examination mild expiratory wheeze and bilateral rales more prominent in the left lower lobe. Abdomen soft. Examination lower extremity no clubbing no cyanosis no lower extremity edema. Examination of central nervous system no focal logical deficit. Risk Stratification Risk Stratification Applicable: No Objective Data Vital Signs: Vital Signs Temp Pulse Resp BP Pulse Ox 98 F 90 20 H 107/63 97 09/20/21 09:50 09/20/21 10:00 09/20/21 10:00 09/20/21 09:50 09/20/21 10:00 Oxygen Delivery Method Room Air Weight: 145 lb 4.554 oz Body Mass Index (BMI) 24.9 Lab / Micro Data Result Diagrams: 09/20/21 05:18 09/20/21 05:18 Labs: Laboratory Results - last 24 hr 09/19/21 17:10: WBC 16.5 H, RBC 3.89 L, Hgb 10.5 L, Hct 32.4 L, MCV 83.3, MCH 27.0, MCHC 32.4, RDW Std Deviation 41.3, RDW Coeff of Sona 13.6, Plt Count 351, MPV 10.5, Immature Gran % (Auto) 0.500, Neut % (Auto) 71.4 H, Lymph % (Auto) 15.9 L, Garfield % (Auto) 11.6 H, Eos % (Auto) 0.3, Baso % (Auto) 0.3, Absolute Neuts (auto) 11.8 H, Absolute Lymphs (auto) 2.61, Nucleated RBC % 0, Differential Comment SCANNED, Diff Path Review March09/19/21 17:10: D-Dimer Quant (PE/DVT) 5.03 H* 09/19/21 17:10: Sodium 136, Potassium 3.6, Chloride 101, Carbon Dioxide 28.0, Anion Gap 7, BUN 8, Creatinine 0.68, Estim Creat Clear Calc 80.72, Est GFR ( MDRD) Af Amer 116, Est GFR (MDRD) Non-Af 96, BUN/Creatinine Ratio 11.8, Glucose 111 H, Calcium 8.7, Troponin I High Sens 4 09/19/21 17:10: C-React Prot Ext Range 104.00 H 09/19/21 17:10: ESR 76 H 09/20/21 05:18: WBC 9.6, RBC 3.81 L, Hgb 10.2 L, Hct 32.1 L, MCV 84.3, MCH 26.8 L, MCHC 31.8 L, RDW Std Deviation 42.9, RDW Coeff of Sona 13.8, Plt Count 344, MPV 10.5, Immature Gran % (Auto) 0.600, Neut % (Auto) 66.8, Lymph % (Auto) 17.0 L, Garfield % (Auto) 14.0 H, Eos % (Auto) 1.1, Baso % (Auto) 0.5, Absolute Neuts (auto) 6.4, Absolute Lymphs (auto) 1.64, Nucleated RBC % 0 09/20/21 05:18: Sodium 137, Potassium 4.0, Chloride 102, Carbon Dioxide 29.0, Anion Gap 6, BUN 10, Creatinine 0.67, Estim Creat Clear Calc 81.93, Est GFR (MDRD) Af Amer 118, Est GFR (MDRD) Non-Af 98, BUN/Creatinine Ratio 15.0, Glucose 103, Calcium 8.5 Micro: Microbiology 09/19/21 21:58 Urine, Clean Catch Legionella Antigen - Final 09/19/21 21:58 Urine, Clean Catch Streptococcus pneumoniae Antigen (M - Final Cardiology Labs/Tests 09/19/21 17:10: WBC 16.5 H, RBC 3.89 L, Hgb 10.5 L, Hct 32.4 L, MCV 83.3, MCH 27.0, MCHC 32.4, Plt Count 351, MPV 10.5, Immature Gran % (Auto) 0.500, Neut % (Auto) 71.4 H, Lymph % (Auto) 15.9 L, Garfield % (Auto) 11.6 H, Eos % (Auto) 0.3, Baso % (Auto) 0.3, Absolute Neuts (auto) 11.8 H, Nucleated RBC % 0 09/19/21 17:10: D-Dimer Quant (PE/DVT) 5.03 H* 09/19/21 17:10: Sodium 136, Potassium 3.6, Chloride 101, Carbon Dioxide 28.0, Anion Gap 7, BUN 8, Creatinine 0.68, Est GFR (MDRD) Af Amer 116, Est GFR (MDRD) Non-Af 96, BUN/Creatinine Ratio 11.8, Glucose 111 H, Calcium 8.7 09/20/21 05:18: WBC 9.6, RBC 3.81 L, Hgb 10.2 L, Hct 32.1 L, MCV 84.3, MCH 26.8 L, MCHC 31.8 L, Plt Count 344, MPV 10.5, Immature Gran % (Auto) 0.600, Neut % (Auto) 66.8, Lymph % (Auto) 17.0 L, Garfield % (Auto) 14.0 H, Eos % (Auto) 1.1, Baso % (Auto) 0.5, Absolute Neuts (auto) 6.4, Nucleated RBC % 0 09/20/21 05:18: Sodium 137, Potassium 4.0, Chloride 102, Carbon Dioxide 29.0, Anion Gap 6, BUN 10, Creatinine 0.67, Est GFR (MDRD) Af Amer 118, Est GFR (MDRD) Non-Af 98, BUN/Creatinine Ratio 15.0, Glucose 103, Calcium 8.5 Rhythm: Normal sinus rhythm EKG: Sinus rhythm Chest CT Scan: Moderate pericardial effusion, prominent left lower lobe consolidation more than right lower lobe Radiography Diagnostic Testing: Radiology Impression Chest X-Ray 09/19/21 16:59 IMPRESSION: Left lower lobe infiltrate. Electronically Signed: Aly Mix MD (Brooks) at 17:38 EDT , Service support , Chest CTA 09/19/21 18:10 IMPRESSION: 1. No central or segmental pulmonary embolism. 2. Moderate volume pericardial effusion. 3. Small left and trace right pleural effusions. 4. Left lower lobe more than right lower lobe parenchymal consolidation, likely atelectasis although pneumonia cannot be excluded. Electronically Signed: Aly Mix MD (Brooks) at 18:46 EDT , Service support ,
--- NOTE | 2021-09-20 14:54 | CPS ---
1330 Dr Velasco core txt to DC pt's aerosol rx's and allow pt to take home Advair Dr Velasco allowed the aerosol rx's to be dc'd and was allowing pt to take own Advair inhaler at bedside. Pt's Advair inhaler was dropped off at pharmacy for them to verify. Charge nurse aware and pt's nurse aware also. New order was entered for pharmacy for use of Advair. Pharmacy was informed to call [phone]{ [phone] } with any questions.
[2021-09-20] MEDS: levoFLOXacin IV 750 MG/150 ML BAG 100 MG IV (21:26)
[2021-09-21] VITALS (7 sets, daily range): BP systolic 103–112; BP diastolic 69–76; PULSE 97–106; RESP 18–106; TEMP 36.3–36.9; O2SAT 95–97
[2021-09-21 06:49] LABS: Absolute Lymphocyte Count 1.71 X10^3/uL (0.83-4.51); Basophil# 0.04 X10^3/uL; Basophil% 0.4 % (0-1); Eosinophil# 0.18 X10^3/uL; Hematocrit 33.1 % (37-47); Hemoglobin 10.7 g/dL (12.0-15.0); Lymphocyte # 1.71 X10^3/ul (0.83-4.51); Lymphocyte % 18.8 % (19-41); Mean Corp Hgb Conc 32.3 g/dL (32-36); Mean Corpuscular Hgb 26.8 pg (27.0-32.0); Mean Platelet Vol. 10.4 fl (6.2-12.0); Monocyte# 1.13 X10^3/uL; Monocyte% 12.4 % (0-10); NRBC Flagged by Analyzer 0 % (0-5); Neutrophil # 5.99 X10^3/uL (2.7-7.7); Neutrophil % 65.9 % (47-70); Platelet Count 367 K/mm3 (150-450); RBC Distribution Width CV 13.9 % (11.6-14.6); RBC Distribution Width SD 42.4 fl (35.1-43.9); Red Blood Count 3.99 M/mm3 (4.2-5.4); White Blood Count 9.1 K/mm3 (4.4-11.0)
[2021-09-21] MEDS: Montelukast 10 MG Tablet PO (10:31)
--- NOTE | 2021-09-21 11:15 | CASEMGMT ---
JONATHAN SALES assessment: Face to Face with patient for initial transition planning/care coordination assessment. JONATHAN SALES introduced self and role at [facility], pt voices understanding and consents to assessment. Pt is sitting up in bed in no distress on room air. Pt is A/Ox4 and answers all questions appropriately. Pt's is at bedside during assessment. Care providers, pharmacy, and demographics verified. Presentation: Pt c/o SOB and was put on prednisone last week at urgent care with no improvement Admitting dx: Pericardial effusion, pna PCP: Lester Specialists: None currently Preferred Pharmacy: [facility] Insurance: [place] Prescription Benefit: [place] Living Will/HPOA: Pt does not have LW/HPOA but is interested in AD info and AD info provided at this time. LNOK: Alberto Luna, Living Arrangements: Pt lives with in split level home and states no concerns at home. Pt is independent with ADL's. Transportation: Pt drives self and states no transportation concerns. DME/HHC: Pt states no current DME or need for any further DME. Pt states no hx of HHC or SNF in the past. Pt states no concerns with going home at time of discharge. 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 Pt smokes 1/2 cigarettes daily and does not drink ETOH. Pt voices no further concerns/needs. CM to follow for any further discharge planning/needs. Advised pt to ask for CM if any further questions/concerns/needs arise, voices understanding. Pt Goal: Home Plan: [place] JONATHAN SALES
--- NOTE | 2021-09-21 12:17 | PN.HOSP_ITS ---
Documented by User: Buddy MARTE 09/21/21 12:21 Subjective Subjective Patient is a 56-year-old female comfortably resting in bed, alert and orient x3. Patient reports that her shortness of breath is stable and denies development of any new symptoms overnight. Does not appear to be in acute distress. Objective Data Objective Data Vital Signs: Vital Signs Temp Pulse Resp BP Pulse Ox 98.1 F 97 18 105/69 97 09/21/21 10:00 09/21/21 10:00 09/21/21 10:00 09/21/21 10:00 09/21/21 10:00 Oxygen Delivery Method Room Air Weight: 145 lb 4.554 oz Body Mass Index (BMI) 24.9 Intake & Output: Intake and Output for Last 24 Hours 09/19/21 09/20/21 09/21/21 23:59 23:59 23:59 Intake Total 1190 / 1190 120 / 120 Output Total 3 / 3 Balance 1187 / 1187 120 / 120 Lab / Micro Data Result Diagrams: 09/21/21 05:50 09/20/21 05:18 Labs: Laboratory Results - last 24 hr 09/21/21 05:50: WBC 9.1, RBC 3.99 L, Hgb 10.7 L, Hct 33.1 L, MCV 83.0, MCH 26.8 L, MCHC 32.3, RDW Std Deviation 42.4, RDW Coeff of Sona 13.9, Plt Count 367, MPV 10.4, Immature Gran % (Auto) 0.500, Neut % (Auto) 65.9, Lymph % (Auto) 18.8 L, [place] % (Auto) 12.4 H, Eos % (Auto) 2.0, Baso % (Auto) 0.4, Absolute Neuts (auto) 6.0, Absolute Lymphs (auto) 1.71, Nucleated RBC % 0 Micro: Microbiology 09/19/21 21:58 Urine, Clean Catch Legionella Antigen - Final 09/19/21 21:58 Urine, Clean Catch Streptococcus pneumoniae Antigen (M - Final Physical Exam Const alert, oriented x3 and no apparent distress HEENT head/scalp atraumatic, moist oral mucous membranes and oropharynx normal Head and Scalp: normocephalic Eyes PERRL, EOMs intact bilaterally and conjunctivae normal Neck no lymphadenopathy, supple and no JVD Resp normal respiratory effort, no retractions and no use of accessory muscles Auscultation: diminished lung sounds bilateral lower Cardio regular rate, regular rhythm, no murmurs and no JVD GI normal to inspection, nondistended, normoactive bowel sounds, soft to palpation and non-tender Extremity normal to inspection, full ROM and no clubbing, cyanosis or edema Skin no rashes or lesions noted, no wounds, skin turgor normal and no jaundice Neuro CN's II-XII intact bilaterally Psych affect normal Assessment & Plan Assessment/Plan (1) Pneumonia: QUALIFIERS: Laterality: bilateral Lung location: lower lobe of lung Pneumonia type: due to unspecified organism Qualified Code(s): J18.9 - Pneumonia, unspecified organism (2) Pericardial effusion: PLAN: Day 2 Discharge planning: Current plan is for patient to discharge home. 1) community-acquired pneumonia Vital signs are stable and patient is currently satting 97% on room air. White count has resolved, WBC is currently 9.6. CTA and chest x-ray both identified left lower lobe infiltrate. Legionella and strep pneumo urinary antigens negative. Patient had 2 negative Covid test prior to admission in the last week. Plan; continue levofloxacin, continue breathing treatments. 2) pericardial effusion Seen on chest CTA. Awaiting results of echocardiogram completed today, cardiology following. 3) asthma Patient has diminished lung sounds bilaterally at the lower lung bases, although patient appears stable, montelukast and breathing treatments continued. DVT prophylaxis - Lovenox Patient seen by Buddy Medina PA-C, under the supervision of Dr. Younger. Documented by User: Dr. Yeny Younger MD 09/21/21 15:43 Objective Data Lab / Micro Data Result Diagrams: 09/21/21 05:50 09/20/21 05:18 Charges/Coding Addendum Addendum: Patient seen by Buddy Medina PA-C under my supervision Patient seen and examined. She had no complaints today. Her shortness of breath is better. Review of systems otherwise negative. O/E: Const alert, oriented x3 and no apparent distress HEENT head/scalp atraumatic, moist oral mucous membranes and oropharynx normal Head and Scalp: normocephalic Eyes PERRL, EOMs intact bilaterally and conjunctivae normal Neck no lymphadenopathy, supple and no JVD Resp normal respiratory effort, no retractions and no use of accessory muscles Auscultation: diminished lung sounds bilateral lower Cardio regular rate, regular rhythm, no murmurs and no JVD GI normal to inspection, nondistended, normoactive bowel sounds, soft to palpation and non-tender Extremity normal to inspection, full ROM and no clubbing, cyanosis or edema Skin no rashes or lesions noted, no wounds, skin turgor normal and no jaundice Neuro CN's II-XII intact bilaterally Psych affect normal Patient is on p.o. levofloxacin. 2D echo of the chest today showed only mild trace pericardial effusion with EF of 65% and RVSP of 22 mmHg. Plan is continue levofloxacin and for potential discharge home today if okay with cardiology. Rest as per ROSANNA Flaherty-see his note which I reviewed and endorsed. Visit Charges Inpatient E&M: 33448 Subs Hosp L2
[2021-09-21 12:47] LABS: Pathologist Review Reviewed
--- NOTE | 2021-09-21 14:52 | NURSING ---
This RN reviewed all SN charting
--- NOTE | 2021-09-21 15:51 | PCM.DC ---
Discharge Instructions Diet Discharge Diet: No restrictions Activity Discharge Activity: Return to Normal Activity Weight Bearing Status: Weight bearing as tolerated Dressing / Incision Call your doctor if you observe: Fever of 101 or Higher, Numbness or Tingling, Shortness of breath, Dizziness, Chest pain, Increased palpitations (irregular heartbeat) and Calf discomfort Follow Up Care Please Follow Up With: Primary care provider When: Within the next two weeks. Test Results: Test results from this visit will be discussed in further detail at your follow-up appointment, if applicable. Discharge Plan Admission Admit Date/Time: 09/19/21 20:37 Primary Reason for Your Visit: Shortness of breath Attending Provider: Yeny Younger Primary Care Provider: Vladislav Batista Consulting Providers: Bruce Millard Discharge Orders/Prescriptions Prescriptions: New levofloxacin 750 mg tablet 750 mg PO DAILY Qty: 6 RF: 0 Continued albuterol sulfate [ProAir HFA] 90 mcg/actuation HFA aerosol inhaler 1 puff INHALATION Q6H RF: 0 montelukast 10 mg tablet 10 mg PO PRN PRN (Reason: Cough) RF: 0 fluticasone propion-salmeterol [Wixela Inhub] 100-50 mcg/dose blister with device 1 ea INHALATION BID RF: 0 Referrals / Follow Up: Vladislav Batista MD [Primary Care Provider] - Within 2 Weeks Disposition Disposition (needs filled in before D/C Order can be placed): Home, Self Care
--- NOTE | 2021-09-21 16:21 | DS.PCM_ITS ---
Documented by User: Seb MARTE 09/21/21 17:41 Providers Date of Admission: 09/19/21 Primary Care Physician: Dr. Vladislav Batista MD Consultations 09/19/21 21:38 Consult: Cardiology Routine Consulting Provider: Bruce Millard Reason for Consult: Pericardial effusion EMERGENT Consult: No MD Notified: Yes Date Notified: 09/20/21 Time Notified: 07:27 Method of Notification: Text Reason For Visit: PERICARDIAL EFFUSION, PNEUMONIA Diagnosis Discharge Diagnosis (1) Pneumonia: Status: Acute Code(s): J18.9 - Pneumonia, unspecified organism Qualifiers: Laterality: bilateral Lung location: lower lobe of lung Pneumonia type: due to unspecified organism Qualified Code(s): J18.9 - Pneumonia, unspecified organism (2) Pericardial effusion: Status: Acute Code(s): I31.3 - Pericardial effusion (noninflammatory) Medications at Discharge Home Medications albuterol sulfate 90 mcg/actuation aerosol inhaler 1 puff INHALATION Q6H 12/01/17 fluticasone propion-salmeterol [Wixela Inhub] 1 ea INHALATION BID 09/19/21 montelukast 10 mg PO PRN PRN 09/19/21 levofloxacin 750 mg PO DAILY #6 tab 09/21/21 Hospital Course Procedures 2-D Echocardiogram and Transthoracic echo Summary of Care Provided Minutes Spent on Discharge: 35 Hospital Course: Disposition: Patient to discharge home. 1) community-acquired pneumonia Vital signs are stable and patient is currently satting 97% on room air. White count has resolved, WBC is currently 9.6. CTA and chest x-ray both identified left lower lobe infiltrate. Legionella and strep pneumo urinary antigens negative. Patient had 2 negative Covid test prior to admission in the last week. Patient will be discharged on 6-day course of levofloxacin. Patient to follow-up with primary care provider within the next 2 weeks. 2) pericardial effusion Seen on chest CTA. Echocardiogram demonstrated an EF of 65% with normal LV systolic dysfunction, a small pericardial effusion with no evidence of cardiac tamponade and no evidence of diastolic dysfunction. 3) asthma Patient has diminished lung sounds bilaterally at the lower lung bases, although patient appears stable, montelukast and breathing treatments continued. Patient seen by Seb Medina PA-C, under the supervision of Dr. Younger. Physical Exam Narrative Patient is a 60-year-old female resting in bed, alert and orient x3. Patient reports resolution of her shortness of breath from admission. Denies development of any new symptoms overnight. Does not appear in acute distress. Const alert, oriented x3 and no apparent distress HEENT normocephalic, head/scalp atraumatic and hearing grossly normal bilaterally Eyes PERRL, EOMs intact bilaterally and conjunctivae normal Neck no lymphadenopathy, supple and no JVD Resp normal respiratory effort, no retractions, no use of accessory muscles and clear to auscultation bilaterally Cardio regular rate, regular rhythm, no murmurs and no JVD GI normal to inspection, nondistended, normoactive bowel sounds, soft to palpation and non-tender Extremity normal to inspection, full ROM and no clubbing, cyanosis or edema Skin no rashes or lesions noted, no wounds and skin turgor normal Neuro CN's II-XII intact bilaterally Psych affect normal Weight / BMI Weight Weight: 145 lb 4.554 oz Body Mass Index (BMI) 24.9 ABG / Lab / Microbiology Data Result Diagrams: 09/21/21 05:50 09/20/21 05:18 Laboratory: Laboratory Results - last 24 hr 09/19/21 17:10: Diff Path Review Reviewed 09/21/21 05:50: WBC 9.1, RBC 3.99 L, Hgb 10.7 L, Hct 33.1 L, MCV 83.0, MCH 26.8 L, MCHC 32.3, RDW Std Deviation 42.4, RDW Coeff of Sona 13.9, Plt Count 367, MPV 10.4, Immature Gran % (Auto) 0.500, Neut % (Auto) 65.9, Lymph % (Auto) 18.8 L, [place] % (Auto) 12.4 H, Eos % (Auto) 2.0, Baso % (Auto) 0.4, Absolute Neuts (auto) 6.0, Absolute Lymphs (auto) 1.71, Nucleated RBC % 0 Microbiology: Microbiology 09/19/21 21:58 Urine, Clean Catch Legionella Antigen - Final 09/19/21 21:58 Urine, Clean Catch Streptococcus pneumoniae Antigen (M - Final Radiography Diagnostic Testing: Radiology Impression Echocardiogram 09/20/21 11:34 Interpretation Summary Left ventricular systolic function is normal. The estimated ejection fraction is 65 %. Trivial mitral valve insufficiency. Mild tricuspid valve insufficiency. Trivial pulmonic valve insufficiency. Trivial to small pericardial effusion. There are no echocardiographic indications of cardiac tamponade. Right ventricular systolic pressure estimated to be 22 mmHg. No evidence for diastolic dysfunction. Ordering Physician: Bruce Millard Referring Physician: Vladislav Batista Performed By: Sonya Obrien RDCS, RVT D/C Instructions Discharge Diet: No restrictions Weight Bearing Status: Weight bearing as tolerated Call your doctor if you observe: Fever of 101 or Higher, Numbness or Tingling, Shortness of breath, Dizziness, Chest pain, Increased palpitations (irregular heartbeat) and Calf discomfort Please Follow Up With: Primary care provider When: Within the next two weeks. Meaningful Use Info Meaningful Use Diagnoses (Choose all that apply): None applicable Discharge Plan Admission Admit Date/Time: 09/19/21 20:37 Primary Reason for Your Visit: Shortness of breath Attending Provider: Yeny Younger Primary Care Provider: Vladislav Batista Consulting Providers: Bruce Millard Instructions Additional Instructions / Restrictions: Patient Problems: Altered Health Status related to Hospitalization Patient Goals: *Optimal Level of Health *Keep Appointments *Medication Compliance *Remain Safe Discharge Orders/Prescriptions Prescriptions: New levofloxacin 750 mg tablet 750 mg PO DAILY Qty: 6 RF: 0 Continued albuterol sulfate [ProAir HFA] 90 mcg/actuation HFA aerosol inhaler 1 puff INHALATION Q6H RF: 0 montelukast 10 mg tablet 10 mg PO PRN PRN (Reason: Cough) RF: 0 fluticasone propion-salmeterol [Wixela Inhub] 100-50 mcg/dose blister with device 1 ea INHALATION BID RF: 0 Referrals / Follow Up: Vladislav Batista MD [Primary Care Provider] - Within 2 Weeks Juan Guerrero MD [STAFF PHYSICIAN] - Within 1 Month Disposition Disposition (needs filled in before D/C Order can be placed): Home, Self Care Documented by User: Dr. Juan Guerrero MD 09/22/21 09:49 Providers Date of Admission: 09/19/21 Reason For Visit: PERICARDIAL EFFUSION, PNEUMONIA Medications at Discharge Home Medications albuterol sulfate 90 mcg/actuation aerosol inhaler 1 puff INHALATION Q6H 12/01/17 fluticasone propion-salmeterol [Wixela Inhub] 1 ea INHALATION BID 09/19/21 montelukast 10 mg PO PRN PRN 09/19/21 levofloxacin 750 mg PO DAILY #6 tab 09/21/21 ABG / Lab / Microbiology Data Result Diagrams: 09/21/21 05:50 09/20/21 05:18 Discharge Plan Admission Admit Date/Time: 09/19/21 20:37 Primary Reason for Your Visit: Shortness of breath Attending Provider: Yeny Younger Primary Care Provider: Vladislav Batista Consulting Providers: Bruce Millard Instructions Additional Instructions / Restrictions: Patient Problems: Altered Health Status related to Hospitalization Patient Goals: *Optimal Level of Health *Keep Appointments *Medication Compliance *Remain Safe Discharge Orders/Prescriptions Prescriptions: New levofloxacin 750 mg tablet 750 mg PO DAILY Qty: 6 RF: 0 Continued albuterol sulfate [ProAir HFA] 90 mcg/actuation HFA aerosol inhaler 1 puff INHALATION Q6H RF: 0 montelukast 10 mg tablet 10 mg PO PRN PRN (Reason: Cough) RF: 0 fluticasone propion-salmeterol [Wixela Inhub] 100-50 mcg/dose blister with device 1 ea INHALATION BID RF: 0 Referrals / Follow Up: Vladislav Batista MD [Primary Care Provider] - Within 2 Weeks Juan Guerrero MD [STAFF PHYSICIAN] - Within 1 Month Disposition Disposition (needs filled in before D/C Order can be placed): Home, Self Care Charges/Coding Addendum Addendum: [facility] Hospitalist DC Summary was opened and reviewed. There were no alterations made. Documented by User: Dr. Yeny Younger MD 09/22/21 16:48 Providers Date of Admission: 09/19/21 Reason For Visit: PERICARDIAL EFFUSION, PNEUMONIA Medications at Discharge Home Medications albuterol sulfate 90 mcg/actuation aerosol inhaler 1 puff INHALATION Q6H 12/01/17 fluticasone propion-salmeterol [Wixela Inhub] 1 ea INHALATION BID 09/19/21 montelukast 10 mg PO PRN PRN 09/19/21 levofloxacin 750 mg PO DAILY #6 tab 09/21/21 ABG / Lab / Microbiology Data Result Diagrams: 09/21/21 05:50 09/20/21 05:18 Discharge Plan Admission Admit Date/Time: 09/19/21 20:37 Primary Reason for Your Visit: Shortness of breath Attending Provider: Yeny Younger Primary Care Provider: Vladislav Batista Consulting Providers: Bruce Millard Instructions Additional Instructions / Restrictions: Patient Problems: Altered Health Status related to Hospitalization Patient Goals: *Optimal Level of Health *Keep Appointments *Medication Compliance *Remain Safe Discharge Orders/Prescriptions Prescriptions: New levofloxacin 750 mg tablet 750 mg PO DAILY Qty: 6 RF: 0 Continued albuterol sulfate [ProAir HFA] 90 mcg/actuation HFA aerosol inhaler 1 puff INHALATION Q6H RF: 0 montelukast 10 mg tablet 10 mg PO PRN PRN (Reason: Cough) RF: 0 fluticasone propion-salmeterol [Wixela Inhub] 100-50 mcg/dose blister with device 1 ea INHALATION BID RF: 0 Referrals / Follow Up: Vladislav Batista MD [Primary Care Provider] - Within 2 Weeks Juan Guerrero MD [STAFF PHYSICIAN] - Within 1 Month Disposition Disposition (needs filled in before D/C Order can be placed): Home, Self Care Charges/Coding Addendum Addendum: Patient seen by Seb Medina PA-C under my supervision Patient is a 56-year-old female with past medical history of asthma who was admitted through the ED on 09/19/2021 with a complaint of recurrent shortness of breath. She says she has started oral prednisone about 6 days prior to admission for shortness of breath. She had associated dry cough. In the ED, CT showed pericardial effusion and evidence of pneumonia. She was admitted and managed for community-acquired pneumonia left lower lobe as well as pericardial effusion. She was started on IV levofloxacin. Cardiology was consulted and she had a 2D echo which showed only mild trace pericardial effusion with EF of 65% and RVSP of 22 mmHg. Patient remained stable and was reviewed by cardiology recommended that she follow-up to have a repeat limited 2D echo after her underlying pulmonary disease had resolved to reassess her pericardial effusion. She was also counseled to stop smoking. Patient was seen and examined prior to discharge. She had no complaints and felt well. Review of symptoms otherwise negative. Labs and vitals reviewed. Home medication reviewed and reconciled. O/E: Const alert, oriented x3 and no apparent distress HEENT head/scalp atraumatic, moist oral mucous membranes and oropharynx normal Head and Scalp: normocephalic Eyes PERRL, EOMs intact bilaterally and conjunctivae normal Neck no lymphadenopathy, supple and no JVD Resp normal respiratory effort, no retractions and no use of accessory muscles Auscultation: diminished lung sounds bilateral lower Cardio regular rate, regular rhythm, no murmurs and no JVD GI normal to inspection, nondistended, normoactive bowel sounds, soft to palpation and non-tender Extremity normal to inspection, full ROM and no clubbing, cyanosis or edema Skin no rashes or lesions noted, no wounds, skin turgor normal and no jaundice Neuro CN's II-XII intact bilaterally Psych affect normal Patient to be discharged home with a prescription for p.o. levofloxacin for 6 tablets. She is to follow-up with her primary care doctor and follow-up with cardiology in 1 to 2 weeks. Rest as per Seb Medina PA-C's note, which I have reviewed and endorsed. Visit Charges Inpatient E&M: 22014 Disch Hosp
--- NOTE | 2021-09-21 17:42 | PCM.PN.CARD ---
Subjective Subjective This is a 56-year-old white female for cardiovascular follow-up of concerns of an underlying pericardial effusion in the setting of her acute pneumonitis. She was previously evaluated in cardiovascular consultation by Dr. Millard. She states her main concern revolves around her shortness of breath and dyspnea related to her underlying acute pneumonitis superimposed upon her underlying chronic pulmonary disease process. She denies any ongoing classic symptoms of angina pectoris. There is been no obvious orthopnea or PND or peripheral pitting edema. She has had no near syncope or syncope. She did have a transthoracic echocardiogram performed today with the results as noted below. Objective Data Vital Signs: Vital Signs Temp Pulse Resp BP Pulse Ox 98.4 F 106 H 106 H 112/76 95 09/21/21 16:00 09/21/21 16:00 09/21/21 16:00 09/21/21 16:00 09/21/21 16:00 Oxygen Delivery Method Room Air Weight: 145 lb 4.554 oz Body Mass Index (BMI) 24.9 Intake & Output: Intake and Output for Last 24 Hours 09/19/21 09/20/21 09/21/21 23:59 23:59 23:59 Intake Total 1190 / 1190 120 / 120 Output Total 3 / 3 Balance 1187 / 1187 120 / 120 Lab / Micro Data Result Diagrams: 09/21/21 05:50 09/20/21 05:18 Labs: Laboratory Results - last 24 hr 09/19/21 17:10: Diff Path Review Reviewed 09/21/21 05:50: WBC 9.1, RBC 3.99 L, Hgb 10.7 L, Hct 33.1 L, MCV 83.0, MCH 26.8 L, MCHC 32.3, RDW Std Deviation 42.4, RDW Coeff of Sona 13.9, Plt Count 367, MPV 10.4, Immature Gran % (Auto) 0.500, Neut % (Auto) 65.9, Lymph % (Auto) 18.8 L, [place] % (Auto) 12.4 H, Eos % (Auto) 2.0, Baso % (Auto) 0.4, Absolute Neuts (auto) 6.0, Absolute Lymphs (auto) 1.71, Nucleated RBC % 0 Cardiology Labs/Tests 09/21/21 05:50: WBC 9.1, RBC 3.99 L, Hgb 10.7 L, Hct 33.1 L, MCV 83.0, MCH 26.8 L, MCHC 32.3, Plt Count 367, MPV 10.4, Immature Gran % (Auto) 0.500, Neut % (Auto) 65.9, Lymph % (Auto) 18.8 L, [place] % (Auto) 12.4 H, Eos % (Auto) 2.0, Baso % (Auto) 0.4, Absolute Neuts (auto) 6.0, Nucleated RBC % 0 Rhythm: Sinus rhythm EKG: Sinus tachycardia; nonspecific ST/T wave abnormality Radiography Diagnostic Testing: Radiology Impression Echocardiogram 09/20/21 11:34 Interpretation Summary Left ventricular systolic function is normal. The estimated ejection fraction is 65 %. Trivial mitral valve insufficiency. Mild tricuspid valve insufficiency. Trivial pulmonic valve insufficiency. Trivial to small pericardial effusion. There are no echocardiographic indications of cardiac tamponade. Right ventricular systolic pressure estimated to be 22 mmHg. No evidence for diastolic dysfunction. Ordering Physician: Bruce Millard Referring Physician: Vladislav Batista Performed By: Sonya Obrien, FAHEEM, RVT Physical Exam Const alert, oriented x3 and no apparent distress Orientation / Consciousness: awake HEENT normocephalic, head/scalp atraumatic and hearing grossly normal bilaterally Eyes PERRL, EOMs intact bilaterally and conjunctivae normal Neck full ROM, supple and no JVD Resp Auscultation: diminished lung sounds left lower Cardio regular rhythm, S1 normal heart sound and S2 normal heart sound GI normal to inspection, nondistended, normoactive bowel sounds Extremity no pedal edema Skin no rashes or lesions noted Psych mental status grossly normal Assessment & Plan Assessment/Plan (1) Pericardial effusion: PLAN: The patient, per her transthoracic echocardiogram, has a trivial to small pericardial effusion with no obvious cardiac tamponade physiology. At the present time she does not appear to have any acute cardiovascular symptoms nor has she had any adverse cardiovascular events. She should continue her noncardiac evaluation and care in be given consideration in the future for a follow-up limited transthoracic echocardiogram to reassess her pericardial effusion once her underlying pulmonary disease process improves. (2) Pneumonia: QUALIFIERS: Pneumonia type: due to unspecified organism Laterality: bilateral Lung location: lower lobe of lung Qualified Code(s): J18.9 - Pneumonia, unspecified organism PLAN: She has been diagnosed with pneumonia. She is on medical management including antibiotics. She should continue to follow with her primary care physician and/or pulmonology for this. (3) Asthma: PLAN: She does have an underlying pulmonary disease history. She was encouraged to discontinue her tobacco use. Again she should follow-up with her primary care physician and/or pulmonology for this. Addt'l Comments The patient's case has been discussed and reviewed with the patient as well as the [facility] staff. This note was generated using a voice recognition system and there may be incorrect words, spelling or punctuation that were not noted when reviewing the office note prior to saving.
== END 2021-09-21 18:43 | disposition home or self-care (01) | DRG 194 ==
LOC: ED 20:06 → PCU 20:49
PROVIDERS: Physician Assistant; Admitting Provider Hospitalist; Emergency Provider Emergency Medicine; PCP Family Medicine; Visit Provider Student in an Organized Health Care Education/Training Program
DX: J18.9 Pneumonia, unspecified organism (principal); I31.3 Pericardial effusion (noninflammatory); J45.909 Unspecified asthma, uncomplicated; Z79.51 Long term (current) use of inhaled steroids; F17.210 Nicotine dependence, cigarettes, uncomplicated
CPT/HCPCS: 36415; 71045; 71275; 80048; 84484; 85025; 85379; 85652; 86140; 87449; 93005; 93306; 94640; 94667; 99251; 99285; 99406; J7040; Q9967; A4216; G0463

== ENCOUNTER → 2021-11-06 07:00 | Outpatient (CLI) | payer BC, SELFPAY ==
--- NOTE | 2021-11-06 07:01 | BI_ITS ---
MAMMOGRAPHY - BILATERAL SCREENING REASON FOR EXAM: Female, 56 years old. Routine annual screening examination. PERTINENT HISTORY: Grandmother with breast cancer. Remote right stereotactic and ultrasound-guided breast biopsies. TECHNIQUE: Digital bilateral breast lottie (3D mammographic acquisition) in the CC and MLO projections. 2-D mediolateral oblique (MLO) and craniocaudad (CC) views of both breasts were obtained. CAD: Full Field Digital Mammography with Computer Added Detection was performed. COMPARISON: Comparison is made with prior study dated 08/04/2020 and 08/02/2019. FINDINGS: Breast Composition: The breasts are heterogeneously dense, which may obscure small masses. There are no dominant masses or suspicious calcifications. A tissue clip marker is seen within a 9.4 mm x 11.4 well-defined nodule in the deep upper lateral portion of the right breast. No other significant abnormalities are identified. There has been no significant change since the prior study. BI/SCRN MAMM (CAD)W/LOTTIE BILAT IMPRESSION: Stable bilateral screening mammogram. Yearly follow-up mammogram recommended. (A) ASSESSMENT CATEGORY: BIRADS Category 2: Benign. A letter regarding these results will be sent to the patient by the facility within 30 days. Approximately 10% of breast cancers are not detected by mammography. A normal mammogram should not delay biopsy of a clinically suspicious abnormality. [id number] Electronically Signed: Ed Curry MD at 8:55 EST , Service support ,
== END ==
PROVIDERS: PCP Family Medicine; Referring Provider Nurse Practitioner Women's Health; Visit Provider Nurse Practitioner Women's Health
DX: Z12.31 Encounter for screening mammogram for malignant neoplasm of breast (principal)
CPT/HCPCS: 77063; 77067

== ENCOUNTER 2021-11-24 13:53 | Outpatient (CLI) | payer BC, SELFPAY ==
--- NOTE | 2021-11-24 13:55 | ECHOL_ITS ---
Reason For Study: PERICARDIAL EFFUSION Procedure This was a limited 2D transthoracic echocardiogram. Limited views were obtained. Exam performed in department. Left Ventricle Normal LV size. Left ventricular systolic function is normal. The estimated ejection fraction is 60 %. Unable to assess diastolic dysfunction. No regional wall motion abnormalities noted. Right Ventricle Normal RV size. Normal systolic function. Atria Normal left atrium. Normal right atrium. Mitral Valve There is no mitral annular calcification. Normal mitral valve. Tricuspid Valve Normal tricuspid valve. Aortic Valve Trisinus/trileaflet aortic valve. Normal aortic valve. Pulmonic Valve The pulmonic valve is not well visualized. Great Vessels Normal sized aortic root. Pericardium/Pleural No pericardial effusion. MMode/2D Measurements & Calculations LVIDd: 4.5 cm IVSd: 1.1 cm Ao root diam: 3.3 cm LVIDs: 3.1 cm LVPWd: 1.1 cm RVDd: 3.5 cm FS: 31.7 % LAV(MOD-bp): 62.6 ml LA A4 area: 19.6 cm2 LA dimension(2D): 3.8 cm LAV(MOD-bp) Indexed: 36.7 ml/m2 LAV(MOD-sp2): 58.8 ml LAV(MOD-sp4): 58.7 ml RA A4 area: 18.2 cm2 ECHO/Echo, Limited Study Interpretation Summary Limited views were obtained. Left ventricular systolic function is normal. The estimated ejection fraction is 60 %. No pericardial effusion. Unable to assess diastolic dysfunction. Ordering Physician: Ofelia De León Referring Physician: Vladislav Batista Performed By: Sonya Obrien, FAHEEM, RVT
== END 2021-11-24 23:59 | disposition short-term general hospital (02) ==
LOC: CVS 13:54
PROVIDERS: PCP Family Medicine; Referring Provider Nurse Practitioner Gerontology; Visit Provider Nurse Practitioner Gerontology
DX: I31.3 Pericardial effusion (noninflammatory) (principal)
CPT/HCPCS: 93308

== ENCOUNTER → 2022-06-29 | Outpatient (CLI) | payer BC, SELFPAY ==
[2022-06-29 22:50] LABS: Estradiol < 11.0 pg/mL; Free T3 2.5 pg/mL (2.18-3.98); T4 Free Direct 1.23 ng/dL (0.76-1.46); T4 Total, Thyroxin 12.3 ug/dL (4.8-13.9); Thyroid Stim Hormone (TSH) 3.12 uIU/mL (0.358-3.74)
[2022-06-30 09:05] LABS: Progesterone Level < 0.21 ng/mL (See Comment)
== END | disposition home or self-care (01) ==
LOC: LABSPEC 21:37
PROVIDERS: PCP Family Medicine; Visit Provider Nurse Practitioner Family
DX: E03.9 Hypothyroidism, unspecified (principal); R63.5 Abnormal weight gain; Z78.0 Asymptomatic menopausal state
CPT/HCPCS: 82670; 84144; 84402; 84403; 84436; 84439; 84443; 84481

== ENCOUNTER → 2022-08-30 | Outpatient (CLI) | payer BC, SELFPAY ==
[2022-08-30 13:53] LABS: Estradiol 27.2 pg/mL; Free T3 2.7 pg/mL (2.18-3.98); T4 Free Direct 0.61 ng/dL (0.76-1.46)
== END | disposition home or self-care (01) ==
PROVIDERS: PCP Family Medicine; Visit Provider Nurse Practitioner Family
DX: E03.9 Hypothyroidism, unspecified (principal); E28.39 Other primary ovarian failure
CPT/HCPCS: 36415; 82670; 84403; 84439; 84443; 84481

== ENCOUNTER → 2023-06-01 | Outpatient (CLI) | payer BC, SELFPAY ==
--- NOTE | 2023-06-01 07:02 | BI_ITS ---
MAMMOGRAPHY - BILATERAL SCREENING REASON FOR EXAM: Female, 58 years old. Routine annual screening examination. PERTINENT HISTORY: Grandmother with breast cancer. Prior right stereotactic breast biopsy and right ultrasound-guided breast biopsy. TECHNIQUE: Digital bilateral breast lottie (3D mammographic acquisition) in the CC and MLO projections. 2-D mediolateral oblique (MLO) and craniocaudad (CC) views of both breasts were obtained. CAD: Full Field Digital Mammography with Computer Added Detection was performed. COMPARISON: Comparison is made with prior study dated November 06, 2021 and August 04, 2020. FINDINGS: Breast Composition: The breasts are heterogeneously dense, which may obscure small masses. There are no dominant masses or suspicious calcifications. Once again, a tissue clip marker is seen within a 9.4 mm x 11.4 mm well-defined nodule with a calcifications in the deep central lateral aspect of the right breast. This most likely represents a fibroadenoma. No other significant abnormalities are identified. There has been no significant change since the prior study. BI/SCRN MAMM (CAD)W/LOTTIE BILAT IMPRESSION: Stable bilateral screening mammogram. Yearly follow-up mammogram recommended. (A) ASSESSMENT CATEGORY: BIRADS Category 2: Benign. A letter regarding these results will be sent to the patient by the facility within 30 days. Approximately 10% of breast cancers are not detected by mammography. A normal mammogram should not delay biopsy of a clinically suspicious abnormality. [id number] Electronically Signed: Ed Curry MD at 8:37 EDT ,
== END | disposition home or self-care (01) ==
LOC: OPBI 07:00
PROVIDERS: PCP Family Medicine; Referring Provider Nurse Practitioner Women's Health; Visit Provider Nurse Practitioner Women's Health
DX: Z12.31 Encounter for screening mammogram for malignant neoplasm of breast (principal)
CPT/HCPCS: 77063; 77067

== ENCOUNTER → 2024-06-05 | Outpatient (CLI) | payer BC, SELFPAY ==
--- NOTE | 2024-06-05 07:11 | BI_ITS ---
MAMMOGRAPHY - BILATERAL SCREENING REASON FOR EXAM: Female, 59 years old. Routine annual screening examination. PERTINENT HISTORY: Grandmother with breast cancer. Prior right stereotactic breast biopsy. TECHNIQUE: Digital bilateral breast lottie (3D mammographic acquisition) in the CC and MLO projections. 2-D mediolateral oblique (MLO) and craniocaudad (CC) views of both breasts were obtained. CAD: Full Field Digital Mammography with Computer Added Detection was performed. COMPARISON: Comparison is made with prior study dated June 01, 2023 and November 06, 2021. FINDINGS: Breast Composition: The breasts are heterogeneously dense, which may obscure small masses. There are no dominant masses or suspicious calcifications. Stable 9.4 mm x 11 mm nodular density in the deep upper lateral aspect of the right breast. A tissue clip marker is seen within it. Stable calcifications are also seen within the nodule. This most likely represents a calcifying fibroadenoma. No other significant abnormalities are identified. There has been no significant change since the prior study. BI/SCRN MAMM (CAD)W/LOTTIE BILAT IMPRESSION: Stable bilateral screening mammogram. Yearly follow-up mammogram recommended. (A) ASSESSMENT CATEGORY: BIRADS Category 2: Benign. A letter regarding these results will be sent to the patient by the facility within 30 days. Approximately 10% of breast cancers are not detected by mammography. A normal mammogram should not delay biopsy of a clinically suspicious abnormality. [id number] Electronically Signed: Ed Curry MD at 8:46 EDT ,
== END | disposition home or self-care (01) ==
LOC: OPBI 07:11
PROVIDERS: PCP Family Medicine; Referring Provider Nurse Practitioner Women's Health; Visit Provider Nurse Practitioner Women's Health
DX: Z12.31 Encounter for screening mammogram for malignant neoplasm of breast (principal)
CPT/HCPCS: 77063; 77067

== ENCOUNTER → 2024-06-28 | Outpatient (CLI) | payer BC, SELFPAY ==
[2024-07-03 19:08] LABS: HPV APTIMA, High Risk Negative (Negative)
== END | disposition home or self-care (01) ==
LOC: LABSPEC 11:56
PROVIDERS: PCP Family Medicine; Referring Provider Nurse Practitioner Women's Health; Visit Provider Nurse Practitioner Women's Health
DX: Z12.4 Encounter for screening for malignant neoplasm of cervix (principal)
CPT/HCPCS: 87624; 88175; G0145

== ENCOUNTER → 2024-08-01 | Outpatient (CLI) | payer BC, SELFPAY ==
[2024-08-01 07:56] LABS: Absolute Lymphocyte Count 2.21 X10^3/uL (0.83-4.51); Basophil# 0.08 X10^3/uL; Basophil% 1.1 % (0-1); Eosinophil# 0.32 X10^3/uL; Eosinophils% 4.4 % (0-5); Hematocrit 39.5 % (37-47); Hemoglobin 12.2 g/dL (12.0-15.0); Lymphocyte # 2.21 X10^3/ul (0.83-4.51); Lymphocyte % 30.7 % (19-41); Mean Corp Hgb Conc 30.9 g/dL (32-36); Mean Corpuscular Hgb 25.3 pg (27.0-32.0); Mean Platelet Vol. 12.1 fl (6.2-12.0); Monocyte# 0.62 X10^3/uL; Monocyte% 8.6 % (0-10); NRBC Flagged by Analyzer 0 % (0-5); Neutrophil # 3.96 X10^3/uL (2.7-7.7); Neutrophil % 54.9 % (47-70); Platelet Count 270 K/mm3 (150-450); RBC Distribution Width CV 14.6 % (11.6-14.6); RBC Distribution Width SD 43.9 fl (35.1-43.9); Red Blood Count 4.82 M/mm3 (4.2-5.4); White Blood Count 7.2 K/mm3 (4.4-11.0)
[2024-08-01 08:27] LABS: Hemoglobin A1c 5.8 % (3.8-5.6)
[2024-08-01 08:43] LABS: ALB/GLOB Ratio 0.9 RATIO (0.9-2.4); AST(SGOT) 10 U/L (15-37); Alanine Aminotransfer ALT/SGPT 15 U/L (13-56); Albumin, Serum 3.5 g/dL (3.2-5.0); Alkaline Phosphatase 86 U/L (45-117); Anion Gap 5 (5-15); BUN 9 mg/dL (7-18); BUN/Creat Ratio 13.5 RATIO (10-20); Calcium,Total 9.1 mg/dL (8.5-10.1); Chloride 104 mmol/L (98-107); Cholesterol 159 mg/dL (200); Creatinine, Serum 0.66 mg/dL (0.55-1.02); EST Glomerular Filtration Rate 97 mL/min (>60); Est Glom Filt Rate - Afr Amer 117 mL/min (>60); Globulin 3.9 g/dL (2.2-4.2); Glucose 101 mg/dL (74-106); High Density Lipoprotein 51 mg/dL; Potassium 3.9 mmol/L (3.5-5.1); Protein, Total 7.4 g/dL (6.4-8.2); Sodium Level 137 mmol/L (136-145); Triglycerides 90 mg/dL; Very Low Density Lipoprotein 18 mg/dL (5-40)
== END | disposition home or self-care (01) ==
LOC: LAB 07:07
PROVIDERS: PCP Family Medicine; Referring Provider Family Medicine; Visit Provider Family Medicine
DX: E03.9 Hypothyroidism, unspecified (principal); R73.09 Other abnormal glucose
CPT/HCPCS: 36415; 80053; 80061; 83036; 84443; 85025

== ENCOUNTER → 2025-06-06 | Outpatient (CLI) | payer BC, SELFPAY ==
--- NOTE | 2025-06-06 07:15 | BI_ITS ---
EXAM: SCRN MAMM (CAD)W/LOTTIE BILAT DATE: 06/06/2025 CLINICAL HISTORY: F, Age 60 y/o , SCREEN FOR BREAST CANCER Grandmother with breast cancer. Prior right stereotactic breast biopsy. History of fibroadenoma. TECHNIQUE: SCRN MAMM (CAD)W/LOTTIE BILAT COMPARISON: Prior exam(s) dated June 05, 2024.. FINDINGS: TISSUE DENSITY: There are scattered areas of fibroglandular density. Bilateral Breast Mammographic Findings: Stable 11.2 mm x 13 mm nodular dense central No suspicious masses, areas of developing architectural distortion, or suspicious calcifications. There has been no significant interval change. BI/SCRN MAMM (CAD)W/LOTTIE BILAT IMPRESSION: Stable examination. OVERALL FINAL ASSESSMENT BI-RADS 2: BENIGN RECOMMENDATION: Routine annual follow-up in 1 Year A letter with findings and recommendations will be mailed to the patient. Reading Location: [place] [id number]
== END | disposition home or self-care (01) ==
LOC: OPBI 07:10
PROVIDERS: PCP Family Medicine; Referring Provider Nurse Practitioner Women's Health; Visit Provider Nurse Practitioner Women's Health
DX: Z12.31 Encounter for screening mammogram for malignant neoplasm of breast (principal)
CPT/HCPCS: 77063; 77067